=== PATIENT | female | born 1955 | race Caucasian/White ===

== ENCOUNTER 2021-02-18 23:09 | Emergency (ER) | payer MEDICARE, OTHER ==
[~2021-02-18] VITALS: Ht 162.5 cm; Wt 92.3 kg
[2021-02-18 23:14] VITALS: BP 167/86
--- OUTSIDE RECORDS SUMMARY | 2021-02-18 23:15 | XMS REPORT | Clinical Summary ---
Author Author [facility] Organization [facility] Address Unknown Phone Unavailable Care Team Providers Care Review Scheduling Coordinator Name Role Phone Jem Winter MD PCP Source Comments Some departments are not documenting in the electronic medical record. If you d o not see the information that you expected, contact Release of Information in [facility] [employer] Information Management department at [phone] for further assistan ce in locating additional records.[facility] Allergies Not on File Medications End Date Status Medication Sig Dispensed Refills Start Date Active levothyroxine (SYNTHROID) Take 50 mcg 0 50 mcg tablet by mouth daily 30 minutes before breakfast. Active omeprazole DR(+) Take 20 mg by 0 (PRILOSEC) 20 mg capsule mouth daily before breakfast. Active atenolol (TENORMIN) 25 mg Take 25 mg by 0 tablet mouth daily. Active loratadine (CLARITIN) 10 Take 10 mg by 0 mg tablet mouth every morning. Active gabapentin 300 mg Tb24 Take by 0 mouth. Active lovastatin(+) (MEVACOR) Take 20 mg by 0 20 mg tablet mouth at bedtime daily. Active montelukast (SINGULAIR) Take 10 mg by 0 10 mg tablet mouth at bedtime daily. 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 Medical History Medical History Date Comments High cholesterol Dizziness Hypothyroid Seasonal allergic reaction Family History Medical History Relation Name Comments Stroke Brother Diabetes Father Stroke Father Relation Name Status Comments Brother Alive Father Alive Mother Alive Sister Alive Sister Alive Sister Alive Social History Date Tobacco Use Types Packs/Day Years Used Never Smoker Smokeless Tobacco: Never Used Sex Assigned at Date Recorded Not on file Last Filed Vital Signs Reading Time Taken Comments Vital Sign 160/66 10/18/2018 1:46 PM CDT Blood Pressure 67 10/18/2018 1:46 PM CDT Pulse - - Temperature - - Respiratory Rate - - Oxygen Saturation - - Inhaled Oxygen Concentration 96.6 kg (213 lb) 10/18/2018 1:46 PM CDT Weight 162.6 cm (5' 4") 10/18/2018 1:46 PM CDT Height 36.56 10/18/2018 1:46 PM CDT Body Mass Index Plan of Treatment Health Maintenance Due Date Last Done Comments DTAP/TDAP VACCINES (1 - 02/29/1972 Tdap) HEPATITIS C SCREENING 02/29/1972 PHYSICAL (COMPREHENSIVE) 02/29/1972 EXAM BREAST CANCER SCREENING 1994 COLORECTAL CANCER 02/29/2004 SCREENING SHINGLES RECOMBINANT 02/29/2004 VACCINE (1 of 2) OSTEOPOROSIS 2019 SCREENING/MONITORING PNEUMONIA (PPSV23) 2019 VACCINE (1 of 1 - PPSV23) INFLUENZA VACCINE 10/17/2020 Results Not on filefrom Last 3 Months Advance Directives Patient Vice President Business Development Explanation Type Date Recorded Advance Directive/DPOA Care Teams Start Date End Date Review Scheduling Coordinator Relationship Specialty 10/18/18 Jem Winter MD PCP - [address] [address]
--- OUTSIDE RECORDS SUMMARY | 2021-02-18 23:16 | XMS REPORT | Clinical Summary ---
Author Author [facility] Organization [facility] Address Unknown Phone Unavailable Care Team Providers Care Associate Chief Nurse Name Role Phone Jem Winter MD PCP Allergies No known active allergies Medications End Date Status Medication Sig Dispensed Refills Start Date Active levothyroxine (SYNTHROID, Take 50 mcg 0 LEVOTHROID) 50 MCG tablet by mouth daily. Active atenolol (TENORMIN) 25 MG Take 25 mg by 0 tablet mouth 2 (two) times a day. Active lovastatin (MEVACOR) 20 Take 20 mg by 0 MG tablet mouth nightly. Active gabapentin (NEURONTIN) Take 1 90 capsule 0 300 MG capsule (300 7 capsuleIndications: mg total) by neuropathic pain mouth 3 (three) times a day. Active montelukast (SINGULAIR) Take 10 mg by 0 10 mg tablet mouth nightly. Active omeprazole (PRILOSEC) 20 Take 20 mg by 0 MG capsule mouth daily. Active loratadine (CLARITIN) 10 Take 10 mg by 0 mg tablet mouth daily. Active fluticasone propionate Use 2 sprays 0 (FLONASE) 50 in each mcg/actuation nasal spray nostril. Active LORazepam (ATIVAN) 0.5 MG Take 0.5 mg 0 11/18 tablet by mouth 8 daily as needed. Active polyethylene glycol Take 17 g by 0 (GLYCOLAX) 17 gram/dose mouth. 8 powder Active pseudoephedrine (SUDAFED) TAKE 2 0 03/20 30 MG tablet TABLETS BY 7 MOUTH TWICE DAILY. 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 Hypothyroidism 02/25/2017 Hyperlipidemia 02/25/2017 Anxiety 02/25/2017 Hypertension 02/25/2017 GERD (gastroesophageal reflux disease) 02/25/2017 Arthritis 02/25/2017 Cranial nerve palsy, right 02/25/2017 Dysphagia 02/24/2017 Thoracic myelopathy 02/23/2017 Resolved Problems Problem Noted Date Resolved Date Moderate malnutrition 02/26/2017 03/07/2017 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 03/04/2017 Family History Medical History Relation Name Comments Transient ischemic attack Brother Luis Latham No Known Problems Daughter 1 Miriam Nicole No Known Problems Daughter 2 Oksana Melgoza No Known Problems Daughter 3 Arin Adams Diabetes type II Father Elder Latham Osteoarthritis Father Elder Latham Transient ischemic attack Father Elder Latham Hypothyroidism Sister 1 Sonam Purcell Hypothyroidism Sister 2 Connie Vickers Hypothyroidism Sister 3 Lexii Live Relation Name Status Comments Brother Luis Latham Daughter 1 Miriam Nicole Alive Daughter 2 Oksana Harvey Abad Daughter 3 Arin Adams Father Elder Latham Mother Kandace Beckeroom Sister 1 Sonam Purcell Alive Sister 2 Connie Vickers Alive Sister 3 Lexii Live Alive Social History Date Tobacco Use Types Packs/Day Years Used Never Smoker Smokeless Tobacco: Never Used Tobacco Cessation: Counseling Given: No Comments Alcohol Use Standard Drinks/Week No 0 (1 standard drink = 0.6 o z pure alcohol) Sex Assigned at Date Recorded Not on file Last Filed Vital Signs Reading Time Taken Comments Vital Sign 113/51 12/09/2018 2:03 PM CDT Blood Pressure 65 12/09/2018 2:03 PM CDT Pulse 36.4 C (97.6 F) 03/16/2017 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 Temperature 19 09/06/2018 2:09 PM CDT Respiratory Rate 100% 12/09/2018 2:03 PM CDT Oxygen Saturation - - Inhaled Oxygen Concentration 96.6 kg (213 lb) 12/09/2018 2:03 PM CDT Weight 162.6 cm (5' 4") 12/09/2018 2:03 PM CDT Height 36.56 12/09/2018 2:03 PM CDT Body Mass Index Plan of Treatment Health Maintenance Due Date Last Done Comments Hepatitis C Screen 1955 Td/Tdap# 1955 COVID-19 Vaccine (1) 1966 Colorectal Screening via 02/29/2004 Colonoscopy Mammogram Screening 02/29/2004 Zoster Vaccine# (1 of 2) 02/29/2004 Advance Care Plan 2019 Conversation Needed # Fall Risk Assessment # 2019 03/16/2017 Osteoporosis Screening 2019 Pneumococcal Vaccine: 65+ 2019 Years (1 of 1 - PPSV23) Influenza Vaccine (#1) 2020 01/02/2018 Results Not on filefrom Last 3 Months Insurance Type Payer Benefit Subscriber ID Effective Phone Address Plan / Dates Group [facility] OUT OF [id number] 2016-P [phone] [address] PREF [facility] [id number] [place] [id number] [facility] (Home) [place], [place] [address] Catarina Simon Personal/F Self 1955 [phone] [facility] (Home) [place] [address] Catarina Simon Personal/F Self 1955 [id number] [facility] (Home) [place] [address] Advance Directives For more information, please contact: [phone] Patient Body Fitter Explanation Type Date Recorded Advance Directives and Living Will Power of Photoengraver Apprentice Health Care Directive Date Inactivated Comments Code Status Date Activated 03/16/2017 1:57 PM Full Code 03/07/2017 4:28 PM 03/07/2017 4:07 PM Full Code 02/24/2017 3:07 AM Care Teams Start Date End Date Associate Chief Nurse Relationship Specialty 12/09/18 Jem Winter MD PCP - [address] [address]
[2021-02-18] MEDS ORDERED: LORazepam INJ 2 MG/ML (ATIVAN) VIAL IVP ONE (23:30)
[2021-02-18] MEDS ORDERED: NS IV 1000 ML 1,000 ML IV SCH (23:30)
--- NOTE | 2021-02-18 23:30 | ED Cough/URI ---
General Stated Complaint: COUGH;SOB Source: patient Exam Limitations: no limitations History of Present Illness Date Seen by Provider: Feb 18, 2021 Time Seen by Provider: 23:14 Initial Comments Patient ER by private conveyance from home with chief complaint of sore throat difficulty with fluids, productive cough, mild shortness of air that has been improving over the past week. She was around some people with similar viral illness who are getting over it. She has had her Covid vaccines as well as a booster and an influenza vaccine. She has a history of transmyelitis and has her left vocal cord paralyzed which amplifies her symptoms. She says because of this she is been afraid to take her Ativan and that has made her anxiety worse. No fevers chills diarrhea nausea or vomiting. She has not had much water to drink since this morning. She has not taken her evening medicines. Allergies and Home Medications Allergies Coded Allergies: No Known Drug Allergies (Unverified , 02/18/21) Patient Home Medication List Home Medication List Reviewed: Yes Review of Systems Review of Systems Constitutional: No chills, No diaphoresis EENTM: No ear discharge, No ear pain Respiratory: cough, phlegm, short of breath; No wheezing Cardiovascular: No chest pain, No palpitations Gastrointestinal: No abdominal pain, No constipation, No diarrhea, No nausea, No vomiting Genitourinary: No discharge, No dysuria Musculoskeletal: No back pain, No joint pain All Other Systems Reviewed Negative Unless Noted: Yes Past Bnxkses-Txlhhw-Wktsiw Hx Patient Social History Tobacco Use?: No Use of E-Cig and/or Vaping dev: No Physical Exam Vital Signs - First Documented 02/18/21 23:14 Temp 35.9 Pulse 103 Resp 18 B/P (MAP) 167/86 (113) Pulse Ox 96 O2 Delivery Room Air Capillary Refill : Height: '" Weight: lbs. oz. kg; BMI Method: General Appearance: WD/WN, no apparent distress Eyes: Bilateral Eye Normal Inspection, Bilateral Eye PERRL, Bilateral Eye EOMI HEENT: PERRL/EOMI, TM abnormal (R) (Myringotomy tube in place without significant erythema injection tenderness or discharge.), other (Oropharynx is dry with some swollen tonsils and erythema. No vocal changes appreciated.) Neck: non-tender, full range of motion, supple, normal inspection, lymphadenopathy (R), lymphadenopathy (L) (Mild anterior cervical lymphadenopathy bilaterally) Respiratory: lungs clear, normal breath sounds, no respiratory distress (Oxygen saturation 99 to 100% on room air nonlabored breathing.), no accessory muscle use Cardiovascular: normal peripheral pulses, regular rate, rhythm Extremities: normal range of motion, normal inspection, normal capillary refill Neurologic/Psychiatric: alert, normal mood/affect, oriented x 3 Skin: normal color, warm/dry Progress/Results/Core Measures Suspected Sepsis SIRS Temperature: Pulse: Respiratory Rate: Blood Pressure / Mean: Results/Orders Lab Results Laboratory Tests Test 02/18/21 23:23 Range/Units Group A Streptococcus Screen NEGATIVE NEGATIVE My Orders Orders - KIRA KLEIN Coronavirus Sars-Cov-2 So 2019 (02/18/21 23:23) Rapid Strep A Screen (02/18/21 23:23) Chest 1 View Ap/Pa Only (02/18/21 23:23) Ns Iv 1000 Ml (Sodium Chloride 0.9%) (02/18/21 23:30) Lorazepam Injection (Ativan Injection) (02/18/21 23:45) Influenza A & B Antigens (02/18/21 23:23) Methylprednisolone Sod Succ (Solu-Medrol (02/19/21 00:00) Medications Given in ED Current Medications Medications Dose Ordered Sig/Aleja Route Start Time Stop Time Status Last Admin Dose Admin Lorazepam 1 mg ONCE ONCE IM 02/18/21 23:45 02/18/21 23:46 DC 02/18/21 23:39 1 MG Vital Signs/I&O 02/18/21 23:14 Temp 35.9 Pulse 103 Resp 18 B/P (MAP) 167/86 (113) Pulse Ox 96 O2 Delivery Room Air Capillary Refill : Progress Note #1: Time: 23:29 Progress Note She appears to have an upper respiratory tract infection most likely viral. We will get a rapid strep, Covid and influenza. We have her a liter of fluids for mild dehydration and keep her on the monitor briefly while we send out a Covid swab and obtain a influenza antibody test. We will give her an IV dose of Ativan. Her anxiety seems to stem from her antibiotic to drink which seems to be from a sore throat. We could offer her salt water gargles or even a single dose of steroid to help assuage the swelling in her throat. Progress Note #2: Time: 23:34 Progress Note Patient is quite anxious and the goal was to address her symptoms of dehydration and anxiety. The patient grabbed at the nurses face while she was trying to swab her throat for rapid strep's and is very agitated after 3 attempts at IV. We will just give her IM Ativan and reassess her symptoms. Progress Note #3: Time: 23:54 Progress Note The Ativan has started to help with her symptoms of anxiety. She still feels like there is phlegm or mucus in the back of her throat although none is seen. I suspect she just has swollen soft tissue from a viral infection. We will give her a shot of steroid to help shrink that up. We have encouraged her to use vapor rubs and decongestants. She says she has Sudafed available. I have also encouraged her to try Chloraseptic sprays or salt water gargles but she states she cannot tolerate due to her vocal cord paralysis. Return precautions were given. She does not appear to have a bacterial infection on the rapid strep. She is not having stridor and does not need epinephrine at this time. Diagnostic Imaging Diagonstic Imaging: Xray Plain Films/CT/US/NM/MRI: chest Comments [facility] [place], [place] NAME: ROB [facility]BLEDO [facility] REC#: [id number] PT STATUS: REG ER : 1955 PHYSICIAN: KIRA KLEIN MD ADMIT DATE: 02/18/21/ER FS Draft Date of Exam:02/18/21 CHEST 1 VIEW AP/PA ONLY INDICATION: soa cough. TECHNIQUE: Single view chest 11:32 PM. CORRELATION STUDY: None FINDINGS: The heart size, mediastinal configuration and pulmonary vascularity are within normal limits. The lungs are clear with no consolidating infiltrate. There is no significant effusion or pneumothorax. IMPRESSION: 1. Negative for acute abnormality of the chest. Dictated on workstation # [id number] Dict: 02/18/21 2342 Trans: 02/18/21 2342 DO [id number] Interpreted by: EDYTA RAMOS DO Electronically signed by: Reviewed: Reviewed by Me Departure Impression Primary Impression: Laryngitis, acute Disposition: 01 HOME, SELF-CARE Condition: Stable Departure-Patient Inst. Decision time for Depature: 23:56 Referrals: FERNANDO HALL MD (PCP/Family) Primary Care Physician Patient Instructions: Laryngitis (DC) Add. Discharge Instructions: You appear to have a viral respiratory tract infection causing the swelling in the back of your throat. The Covid swab is a send out and will have results available within 1 to 2 days. We will call you if it is positive. Continue to try and drink fluids and take your medications. Vapor rubs such as Vicks or Mentholatum as well as decongestants may be helpful. The steroid should kick in over the next 12 to 24 hours. You may continue taking prednisone 2 tablets daily for the next 5 days as n ecessary to reduce the swelling in the back of your throat. Return to the ER promptly if you are having difficulty breathing or you feel you are unable to drink and are becoming dehydrated. Scripts Prednisone (Prednisone) 20 Mg Tab 40 MG PO DAILY for 5 Days, #10 TAB 0 Refills Prov: KIRA KLEIN 02/18/21 KIRA KLEIN Feb 18, 2021 23:30
--- NOTE | 2021-02-18 23:43 | Diagnostic Imaging Report ---
INDICATION: soa cough. TECHNIQUE: Single view chest 11:32 PM. CORRELATION STUDY: None FINDINGS: The heart size, mediastinal configuration and pulmonary vascularity are within normal limits. The lungs are clear with no consolidating infiltrate. There is no significant effusion or pneumothorax. IMPRESSION: 1. Negative for acute abnormality of the chest. Dictated by: Dictated on workstation # [id number]
[2021-02-18] MEDS ORDERED: LORazepam INJ 2 MG/ML (ATIVAN) VIAL IM ONE (23:45)
[2021-02-18] MEDS ORDERED: PRD20T PO (23:58)
[2021-02-19] MEDS ORDERED: methylPREDNISolone 125 MG (Solu-MEDROL) VIAL IM ONE
== END 2021-02-19 00:05 | disposition home or self-care (01) ==
LOC: ER FS 23:13
DX: J04.0 Acute laryngitis (principal); Z20.822 Contact with and (suspected) exposure to COVID-19
CPT/HCPCS: 71045; 87430; 87635; 87636; 87804

== ENCOUNTER 2021-02-19 22:49 | Emergency (ER) | payer MEDICARE ==
[~2021-02-19] VITALS: Ht 162.5 cm; Wt 91.7 kg
[~2021-02-19 22:49] MED LIST: PRD20T PO
[2021-02-19 22:56] VITALS: BP 150/91
--- NOTE | 2021-02-19 23:15 | ED Cough/URI ---
General Chief Complaint: Respiratory Problems Stated Complaint: SOB Nursing Triage Note: Patient was seen in the ER last night for the same complaint. Patient states that she wakes up gasping for air. Patient has a paralyzed vocal cord. Patient did state that it has been a good day over all. She has been eating and drinking fine and she was able to take her night time medications. Patient states she is scared to go to sleep. Patient is able to speak in complete sentences. Source: patient Exam Limitations: no limitations History of Present Illness Date Seen by Provider: Feb 19, 2021 Time Seen by Provider: 22:54 Initial Comments 65yoF with PMH of vocal cord dysfunction coming in due to episode of laryngitis. Was seen yesterday in the emergency department for the same. She says she is here because she is scared to sleep. Does not feel short of breath when she is awake, but is worried that she will feel short of breath if she tries to sleep. Says that she was told she possibly has sleep apnea in the past, and they tried a CPAP machine, but she says she was unable to sleep with that. She is otherwise denying any chest pain, abdominal pain, nausea, vomiting, diarrhea, difficulty swallowing, or any other concerns. Allergies and Home Medications Allergies Coded Allergies: No Known Drug Allergies (Unverified , 02/18/21) Patient Home Medication List Home Medication List Reviewed: Yes Prednisone (Prednisone) 20 Mg Tab, 40 MG PO DAILY Prescribed by: KIRA KLEIN on 02/18/21 2779 Review of Systems Review of Systems Constitutional: No chills, No fever EENTM: No blurred vision Respiratory: No short of breath Cardiovascular: No chest pain Gastrointestinal: No abdominal pain Genitourinary: no symptoms reported Musculoskeletal: no symptoms reported Skin: no symptoms reported Psychiatric/Neurological: No Symptoms Reported Hematologic/Lymphatic: No Symptoms Reported Immunological/Allergic: no symptoms reported All Other Systems Reviewed Negative Unless Noted: Yes Past Njerwbt-Trdynu-Vkqsum Hx Patient Social History Tobacco Use?: No Use of E-Cig and/or Vaping dev: No Substance use?: No Alcohol Use?: No Pt feels they are or have been: No Past Medical History Surgeries: Yes (ear tubes) Physical Exam Vital Signs - First Documented 02/19/21 22:56 Temp 37.0 Pulse 93 Resp 18 B/P (MAP) 150/91 (110) Pulse Ox 98 O2 Delivery Room Air Capillary Refill : Less Than 3 Seconds Height: '" Weight: lbs. oz. kg; 34.00 BMI Method: General Appearance: WD/WN, no apparent distress Eyes: Bilateral Eye Normal Inspection, Bilateral Eye PERRL HEENT: PERRL/EOMI, normal ENT inspection, TMs normal, pharynx normal Neck: non-tender, full range of motion, supple, normal inspection, other (No stridor heard) Respiratory: chest non-tender, lungs clear, normal breath sounds, no respiratory distress, no accessory muscle use Cardiovascular: regular rate, rhythm, no edema, no murmur Gastrointestinal: normal bowel sounds, non tender, soft; No distended, No guarding Extremities: normal range of motion, non-tender, normal inspection, no pedal edema, no calf tenderness, normal capillary refill Neurologic/Psychiatric: no motor/sensory deficits, alert, normal mood/affect Skin: normal color, warm/dry Lymphatic: no adenopathy Progress/Results/Core Measures Suspected Sepsis SIRS Temperature: Pulse: 93 Respiratory Rate: 18 Blood Pressure 150 /91 Mean: 110 Results/Orders Vital Signs/I&O 02/19/21 22:56 Temp 37.0 Pulse 93 Resp 18 B/P (MAP) 150/91 (110) Pulse Ox 98 O2 Delivery Room Air Capillary Refill : Less Than 3 Seconds Blood Pressure Mean: 110 Progress Note : Progress Note Came for follow-up for her laryngitis. Vitals normal, no stridor on exam. Normal range of motion of neck with no signs of deep infection in her neck. No trismus and after she clears her throat her voice is normal. Back of her throat appears normal. Tolerating PO without difficulty. I believe she is stable for discharge with outpatient follow-up. She was sent home with strict return prec autions Departure Impression Primary Impression: Laryngitis, acute Disposition: HOME, SELF-CARE Condition: Stable Departure-Patient Inst. Decision time for Depature: 23:14 Referrals: FERNANDO HALL MD (PCP/Family) Primary Care Physician Patient Instructions: Laryngitis (DC) Add. Discharge Instructions: Please follow-up with your primary care provider. If you develop fever that is uncontrollable and lasting many days, he began feeling short of breath while awake with stridor, or you have any other concerns and he can call your doctor or come back to the ER. MATHEW WHITT MD Feb 19, 2021 23:15
== END 2021-02-19 23:21 | disposition home or self-care (01) ==
LOC: EDUNIT# 22:49 → ER FS 22:51
DX: J04.0 Acute laryngitis (principal)
CPT/HCPCS: 99281

== ENCOUNTER 2021-05-13 05:41 | Outpatient (CLI) | payer MEDICARE, OTHER ==
[~2021-05-13] VITALS: Ht 162.6 cm; Wt 88.7 kg
[2021-05-13] MEDS ORDERED: ROSU20TA32 PO (11:30)
[2021-05-13] MEDS ORDERED: ATEN25TA PO (11:30)
[2021-05-13] MEDS ORDERED: LEVO-129 PO (11:30)
[2021-05-13] MEDS ORDERED: POLY17PO6 PO (11:34)
[2021-05-13] MEDS ORDERED: MONT-40 PO (11:34)
[2021-05-13] MEDS ORDERED: OMEP20CA18 PO (11:34)
[2021-05-13] MEDS ORDERED: FEXO-14 PO (11:34)
[2021-05-13] MEDS ORDERED: GABA300C PO (11:34)
== END 2021-05-13 11:48 ==
LOC: PREOP 05:41
PROVIDERS: ATTEND Otolaryngology Otolaryngology/Facial Plastic Surgery
DX: Z01.818 Encounter for other preprocedural examination (principal)

== ENCOUNTER 2021-05-20 07:07 | Day surgery (SDC) | payer MEDICARE, OTHER ==
[2021-05-20] VITALS (10 sets, daily range): BP systolic 113–166; BP diastolic 56–92
[~2021-05-20] VITALS: Ht 162.6 cm; Wt 88.7 kg
[~2021-05-20 07:07] MED LIST changes: +ATEN25TA PO; +FEXO-14 PO; +GABA300C PO; +LEVO-129 PO; +MONT-40 PO; +OMEP20CA18 PO; +POLY17PO6 PO; +ROSU20TA32 PO
[2021-05-20] MEDS ORDERED: LACTATED RINGERS 1,000 ML IV PRN (07:30)
[2021-05-20] MEDS ORDERED: MIDAZOLAM 2 MG/2 ML (VERSED) VIAL ONE (08:30)
[2021-05-20] MEDS ORDERED: ONDANSETRON 4 MG/2 ML (SDV) Z0FRAN ONE (08:30)
[2021-05-20] MEDS ORDERED: proPOfol 200 MG/20 ML (DIPRIVAN) VIAL IV ONE (08:30)
[2021-05-20] MEDS ORDERED: fentaNYL INJ 100 MCG/2 ML AMP ONE (08:30)
[2021-05-20] MEDS ORDERED: LIDOCAINE PF 2% 5 ML (XYLOCAINE) VIAL ONE (08:30)
--- NOTE | 2021-05-20 08:38 | Progress Note-Post Operative ---
Post-Operative Progess Note Surgeon (s)/Educational Program Assistant (s) Surgeon JAZZMINE MENDEZ MD Educational Program Assistant n/a Pre-Operative Diagnosis Chronic/REcurrent Right OM Post-Operative Diagnosis same Post-Op Procedure Note Date of Procedure: May 20, 2021 Name of Procedure Performed: Right Myringotomy with Tube Description & Findings Description and Findings: n/a Anesthesia Type lma Estimated Blood Loss minimal Packing none. Specimen(s) collected/removed none JAZZMINE MENDEZ MD May 20, 2021 08:38
--- NOTE | 2021-05-20 08:38 | Progress Note-Pre Operative ---
Pre-Operative Progress Note H&P Reviewed The H&P was reviewed, patient examined and no changes noted. Date Seen by Provider: May 20, 2021 Time Seen by Provider: 08:15 Date H&P Reviewed: May 20, 2021 Time H&P Reviewed: 08:15 Pre-Operative Diagnosis: Chronic/REcurrent Right OM JAZZMINE MENDEZ MD May 20, 2021 08:38
[2021-05-20] MEDS ORDERED: APAP 325 MG/10.15 ML LIQ (TYLENOL) UDC PO PRN (08:45)
[2021-05-20] MEDS ORDERED: SEVOFLURANE (ULTANE) 15 ML INHAL SOLN ONE (08:50)
[2021-05-20] MEDS ORDERED: morphine INJ 10 MG/ML 1ML (SYR OR VIAL) IVP ONE (09:00)
[2021-05-20] MEDS ORDERED: CIPR5DRO OP (09:47)
--- NOTE | 2021-05-20 13:22 | Anesthesia-General Post-Op ---
General Patient Condition Mental Status/LOC: Same as Preop Cardiovascular: Satisfactory Nausea/Vomiting: Absent Respiratory: Satisfactory Pain: Controlled Complications: Absent Post Op Complications Complications None Follow Up Care/Instructions Patient Instructions None needed. Anesthesia/Patient Condition Patient Condition Patient is doing well, no complaints, stable vital signs, no apparent adverse anesthesia problems. No complications reported per nursing. ARTURO MARTINEZ CRNA May 20, 2021 13:22
== END 2021-05-20 10:50 | disposition home or self-care (01) ==
LOC: SDC 07:07
PROVIDERS: ATTEND Otolaryngology Otolaryngology/Facial Plastic Surgery
DX: H65.21 Chronic serous otitis media, right ear (principal); H69.81 Other specified disorders of Eustachian tube, right ear
CPT/HCPCS: 87081

== ENCOUNTER 2021-11-04 07:37 | Emergency (ER) | payer MEDICARE, OTHER ==
[~2021-11-04] VITALS: Ht 175 cm; Wt 89.0 kg
[~2021-11-04 07:37] MED LIST changes: +CIPR5DRO OP
--- NOTE | 2021-11-04 07:45 | ED General ---
General Chief Complaint: COVID19 Suspect/Confirmed Stated Complaint: COVID+; CHEST CONGESTION Source of Information: Patient History of Present Illness Date Seen by Provider: Nov 04, 2021 Time Seen by Provider: 07:43 Initial Comments 66-year-old female presenting with complaints of increased congestion. She was diagnosed with COVID 8 days ago when felt like she was improving but then overnight she had more congestion and was having more cough. 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 This makes it hard for her to cough and clear mucus and congestion. She has not been able to sleep overnight because of this. She did call EMS out this morning at 7 AM and they checked on her. Her oxygen saturation at that point was 98% and she was breathing okay. She drove here to the emergency department to be evaluated because she still felt like she had a lot of mucus and congestion. She was concerned that she was dehydrated from the virus, but denies nausea, vomiting, diarrhea and reports she is still drinking normally Severity: Moderate Modifying Factors: worse with Other (cough and congestion) Associated Systoms: No Chest Pain; Cough; No Diaphoresis, No Fever/Chills, No Headaches, No Loss of Appetite; Malaise; No Nausea/Vomiting, No Rash, No Seizure, No Shortness of Air, No Syncope, No Weakness Allergies and Home Medications Allergies Coded Allergies: amoxicillin (Unverified Adverse Reaction, Mild, 05/13/21) SEVERE THRUSH Patient Home Medication List Home Medication List Reviewed: Yes Atenolol (Atenolol) 25 Mg Tablet, 25 MG PO BID, (Reported) Entered as Reported by: ROB HOLLINGSWORTH on 05/13/21 113 Ciprofloxacin HCl (Ciloxan) 5 Ml Drops, 3 DROPS OP BID Prescribed by: NATHALIE CLARK on 05/20/21 0947 Fexofenadine HCl (Adrienne Allergy) 60 Mg Tablet, 60 MG PO DAILY, (Reported) Entered as Reported by: ROB HOLLINGSWORTH on 05/13/21 113 Gabapentin (Neurontin) 300 Mg Capsule, 300 MG PO TID, (Reported) Entered as Reported by: ROB HOLLINGSWORTH on 05/13/21 1134 Levothyroxine Sodium (Euthyrox) 50 Mcg Tablet, 50 MCG PO DAILY, (Reported) Entered as Reported by: ROB HOLLINGSWORTH on 05/13/21 1130 Montelukast Sodium (Montelukast Sodium) 10 Mg Tablet, 10 MG PO DAILY, (Reported) Entered as Reported by: ROB HOLLINGSWORTH on 05/13/21 1134 Omeprazole (Omeprazole) 20 Mg Capsule.dr, 20 MG PO DAILY, (Reported) Entered as Reported by: ROB HOLLINGSWORTH on 05/13/21 1134 Polyethylene Glycol 3350 (Miralax) 17 Gm Powd.pack, 17 GM PO DAILY, (Reported) Entered as Reported by: ROB HOLLINGSWORTH on 05/13/21 1134 Prednisone (Prednisone) 20 Mg Tab, 40 MG PO DAILY Prescribed by: JENNIFER WHITE on 11/04/21 0831 Rosuvastatin Calcium (Rosuvastatin Calcium) 20 Mg Tablet, 20 MG PO DAILY, (Reported) Entered as Reported by: ROB HOLLINGSWORTH on 05/13/21 1130 Review of Systems Review of Systems Constitutional: No chills, No fever; malaise EENTM: hoarseness, nose congestion, throat pain; No ear discharge, No ear pain, No blurred vision, No epistaxis Respiratory: cough, phlegm; No stridor, No wheezing Cardiovascular: No chest pain, No edema Gastrointestinal: No diarrhea, No nausea, No vomiting Genitourinary: No dysuria Musculoskeletal: no symptoms reported Skin: No rash Psychiatric/Neurological: Anxiety; Denies Headache Hematologic/Lymphatic: Denies Blood Clots Past Wpentny-Uvxxsp-Pxbkru Hx Patient Social History Tobacco Use?: No Use of E-Cig and/or Vaping dev: No Substance use?: No Alcohol Use?: No Immunizations Up To Date First/Initial COVID19 Vaccinat: 2020 Second COVID19 Vaccination Rivas: 2020 Third COVID19 Vaccination Date: 2020 Seasonal Allergies Seasonal Allergies: Yes Past Medical History Surgery/Hospitalization HX: Transverse Myelitis, Partially paralyzed vocal cords Surgeries: Yes (ear tubes, ENDOMETRIAL ABLATION) Respiratory: No Cardiac: Yes Coronary Artery Disease, Hypertension Neurological: No (TRANVERSE MYLITITIS WITH LEFT SIDE DEFICIETS 2017-AUTOIMMUNE) Female Reproductive Disorders: Endometriosis Genitourinary: No Gastrointestinal: Yes (TRANSVERSE MYLITIS) Chronic Constipation Musculoskeletal: No Endocrine: No HEENT: Yes (WEARS GLASSES, TRANSVERSE MYLITIS LT SIDE PARALYSIS OF VOCAL CORD AND THROA) Cancer: No Psychosocial: Yes Anxiety Integumentary: No Adverse Reaction/Blood Tranf: No Physical Exam Vital Signs Vital Signs - First Documented 11/04/21 07:58 Temp 35.3 Pulse 89 Resp 22 B/P (MAP) 153/89 (110) Pulse Ox 96 O2 Delivery Room Air Capillary Refill : Height, Weight, BMI Height: '" Weight: lbs. oz. kg; 33.54 BMI Method: General Appearance: Anxious HEENT: PERRL/EOMI, Pharyngeal Erythema; No Photophobia, No Tonsillar Exudate, No Tonsillar Enlargement Neck: Full Range of Motion, Normal Inspection, Non Tender, Supple Respiratory: Chest Non Tender, Lungs Clear, Normal Breath Sounds, No Accessory Muscle Use, No Respiratory Distress Cardiovascular: Regular Rate, Rhythm, Normal Peripheral Pulses Gastrointestinal: Normal Bowel Sounds, No Pulsatile Mass, Non Tender, Soft Rectal: Deferred Back: No CVA Tenderness Extremity: Normal Capillary Refill, Normal Inspection, No Pedal Edema Neurologic/Psychiatric: Alert, Oriented x3, ab initio etl developer II-XII Norm as Tested Skin: Normal Color, Warm/Dry Progress/Results/Core Measures Suspected Sepsis SIRS Temperature: Pulse: Respiratory Rate: Laboratory Tests 11/04/21 08:09: White Blood Count 7.3 Blood Pressure / Mean: Laboratory Tests 11/04/21 08:09: Creatinine 0.98, Platelet Count 242, Total Bilirubin 0.3 Results/Orders Lab Results Laboratory Tests Test 11/04/21 08:09 11/04/21 08:10 Range/Units White Blood Count 7.3 4.3-11.0 10^3/uL Red Blood Count 4.77 3.80-5.11 10^6/uL Hemoglobin 12.4 11.5-16.0 g/dL Hematocrit 39 35-52 % Mean Corpuscular Volume 82 80-99 fL Mean Corpuscular Hemoglobin 26 25-34 pg Mean Corpuscular Hemoglobin Concent 32 32-36 g/dL Red Cell Distribution Width 15.9 H 10.0-14.5 % Platelet Count 242 130-400 10^3/uL Mean Platelet Volume 10.5 9.0-12.2 fL Immature Granulocyte % (Auto) 0 % Neutrophils (%) (Auto) 58 42-75 % Lymphocytes (%) (Auto) 28 12-44 % Monocytes (%) (Auto) 14 H 0-12 % Eosinophils (%) (Auto) 0 0-10 % Basophils (%) (Auto) 0 0-10 % Neutrophils # (Auto) 4.2 1.8-7.8 10^3/uL Lymphocytes # (Auto) 2.0 1.0-4.0 10^3/uL Monocytes # (Auto) 1.0 0.0-1.0 10^3/uL Eosinophils # (Auto) 0.0 0.0-0.3 10^3/uL Basophils # (Auto) 0.0 0.0-0.1 10^3/uL Immature Granulocyte # (Auto) 0.0 0.0-0.1 10^3/uL Sodium Level 136 135-145 MMOL/L Potassium Level 3.8 3.6-5.0 MMOL/L Chloride Level 100 98-107 MMOL/L Carbon Dioxide Level 21 21-32 MMOL/L Anion Gap 15 H 5-14 MMOL/L Blood Urea Nitrogen 17 7-18 MG/DL Creatinine 0.98 0.60-1.30 MG/DL Estimat Glomerular Filtration Rate 63 BUN/Creatinine Ratio 17 Glucose Level 100 70-105 MG/DL Calcium Level 8.8 8.5-10.1 MG/DL Corrected Calcium 8.5 8.5-10.1 MG/DL Total Bilirubin 0.3 0.1-1.0 MG/DL Aspartate Amino Transf (AST/SGOT) 31 5-34 U/L Alanine Aminotransferase (ALT/SGPT) 17 0-55 U/L Alkaline Phosphatase 99 40-136 U/L Total Protein 7.7 6.4-8.2 GM/DL Albumin 4.4 3.2-4.5 GM/DL Urine Color DK YELLOW Urine Clarity CLOUDY Urine pH 6.0 5-9 Urine Specific Mitchell >=1.030 1.016-1.022 Urine Protein 1+ H NEGATIVE Urine Glucose (UA) NEGATIVE NEGATIVE Urine Ketones 1+ H NEGATIVE Urine Nitrite NEGATIVE NEGATIVE Urine Bilirubin 1+ H NEGATIVE Urine Urobilinogen 0.2 < = 1.0 MG/DL Urine Leukocyte Esterase TRACE H NEGATIVE Urine RBC (Auto) 2+ H NEGATIVE Urine RBC 5-10 H /HPF Urine WBC 2-5 /HPF Urine Squamous Epithelial Cells 25-50 H /HPF Urine Crystals NONE /LPF Urine Bacteria MODERATE H /HPF Urine Casts PRESENT /LPF Urine Hyaline Casts 2-5 H /LPF Urine Mucus LARGE H /LPF Urine Culture Indicated NO My Orders Orders - JENNIFER WHITE MD Ed Iv/Invasive Line Start (11/04/21 07:58) Cbc With Automated Diff (11/04/21 07:58) Comprehensive Metabolic Panel (11/04/21 07:58) Ns Iv 1000 Ml (Sodium Chloride 0.9%) (11/04/21 08:00) Ua Culture If Indicated (11/04/21 07:58) Chest 1 View Ap/Pa Only (11/04/21 07:58) Dexamethasone Injection (Decadron Inje (11/04/21 08:02) Vital Signs/I&O 11/04/21 07:58 Temp 35.3 Pulse 89 Resp 22 B/P (MAP) 153/89 (110) Pulse Ox 96 O2 Delivery Room Air Capillary Refill : Progress Note #1: Progress Note Reassured patient that the vital signs appear stable without hypoxia or signs of dehydration based off of her heart rate and blood pressure. Will obtain a chest x-ray and basic labs and urine to help evaluate her hydration. Counseled patient on using Mucinex and humidity to help with her mucus and cough. Will try a steroid to help with congestion and cough. She reports that this is helped when she has had laryngitis and issues with her throat in the past. As she feels like she is dehydrated we will give a liter of normal saline IV for hydration and allow her to drink fluids while waiting on labs and x-ray to come back. Progress Note #2: Time: 08:34 Progress Note Chest x-ray is clear without acute findings. The labs appear stable without acute significant abnormality. Patient is trying to urinate currently and provide a urine specimen. Progress Note #3: Progress Note Urine showed increased specific gravity >1.035. She had 25-50 epithelial cells so it appeared to be contaminated and there were 1+ Ketones. Based on this she does need to drink more water. She was doing well after the 1 L of NS administered here for hydration. d/c on 5 day burst of prednisone and encouraged to use Mucinex to thin mucus and congestion. Humidifier or vaporizer to help moisten mucus. Counseled on follow up and return precautions. Diagnostic Imaging Diagonstic Imaging: Xray Plain Films/CT/US/NM/MRI: chest Comments NAME: ROB ROBLEDO MED REC#: [id number] PT STATUS: REG ER : 1955 PHYSICIAN: JENNIFER WHITE MD ADMIT DATE: 11/04/21/ER FS Draft Date of Exam:11/04/21 CHEST 1 VIEW AP/PA ONLY INDICATION: Cough and congestion, Covid infection Frontal chest obtained at 8:11 a.m. and compared with 02/18/2021. Heart and mediastinal silhouette are normal in appearance. The lungs are clear. There is no pneumothorax or pleural fluid. IMPRESSION: Negative chest. Dictated on workstation # [id number] Dict: 11/04/21816 Trans: 11/04/21818 DACIA [id number] Interpreted by: EPIFANIO JAIME MD Electronically signed by: Reviewed: Reviewed by Me Departure Impression Primary Impression: Upper respiratory infection with cough and congestion Additional Impression: Respiratory tract infection due to COVID-19 virus Disposition: HOME, SELF-CARE Condition: Stable Departure-Patient Inst. Decision time for Depature: 09:00 Referrals: FERNANDO HALL MD (PCP) Primary Care Physician Patient Instructions: Cough, Adult ED, Recovery After COVID-19 Add. Discharge Instructions: Stay well-hydrated and drink plenty of fluids. Try taking plain Mucinex [id number] to help with cough and congestion. This will loosen and thin out the congestion so that it is not choking you and is easier to cough up. Use a humidifier or vaporizer at home to help keep congestion and throat moist so that they do not get dried out. The steroid will help with congestion and cough as well. Check back with your regular provider for continued concerns. All discharge instructions reviewed with patient and/or family. Voiced understanding. Scripts Prednisone (Prednisone) 20 Mg Tab 40 MG PO DAILY for cough/congestion for 5 Days, #10 TAB 0 Refills Prov: JENNIFER WHITE MD 11/04/21 JENNIFER WHITE MD Nov 04, 2021 07:45
[2021-11-04 07:58] VITALS: BP 153/89
[2021-11-04] MEDS ORDERED: guaiFENesin SYRUP 100 MG/5 ML 10 ML (ROBITUSSIN SF) PO STA (07:58)
[2021-11-04] MEDS ORDERED: NS IV 1000 ML 1,000 ML IV SCH (08:00)
[2021-11-04 08:20] LABS: BASOPHILS % (AUTO) 0 % (0-10); EOSINOPHILS % (AUTO) 0 % (0-10); HEMATOCRIT 39 % (35-52); HEMOGLOBIN 12.4 g/dL (11.5-16.0); LYMPHOCYTES % (AUTO) 28 % (12-44); MEAN CORPUSCULAR HEMOGLOBIN 26 pg (25-34); MEAN CORPUSCULAR HGB CONC 32 g/dL (32-36); MEAN CORPUSCULAR VOLUME 82 fL (80-99); MEAN PLATELET VOLUME 10.5 fL (9.0-12.2); MONOCYTES % (AUTO) 14 % (0-12); NEUTROPHILS # (AUTO) 4.2 10^3/uL (1.8-7.8); NEUTROPHILS % (AUTO) 58 % (42-75); PLATELET COUNT 242 10^3/uL (130-400); WHITE BLOOD COUNT 7.3 10^3/uL (4.3-11.0)
--- NOTE | 2021-11-04 08:20 | Diagnostic Imaging Report ---
INDICATION: Cough and congestion, Covid infection Frontal chest obtained at 8:11 a.m. and compared with 02/18/2021. Heart and mediastinal silhouette are normal in appearance. The lungs are clear. There is no pneumothorax or pleural fluid. IMPRESSION: Negative chest. Dictated by: Dictated on workstation # [id number]
[2021-11-04 08:31] LABS: ALBUMIN 4.4 GM/DL (3.2-4.5); BILIRUBIN,TOTAL 0.3 MG/DL (0.1-1.0); CALCIUM 8.8 MG/DL (8.5-10.1); CREATININE SERUM 0.98 MG/DL (0.60-1.30); POTASSIUM 3.8 MMOL/L (3.6-5.0); TOTAL PROTEIN 7.7 GM/DL (6.4-8.2)
[2021-11-04] MEDS ORDERED: PRD20T PO (08:31)
[2021-11-04 08:43] LABS: CLARITY,URINE CLOUDY; GLUCOSE, URINE (UA) NEGATIVE (NEGATIVE); KETONES,URINE 1+ (NEGATIVE); LEUKOCYTE ESTERASE ,URINE TRACE (NEGATIVE); NITRITE,URINE NEGATIVE (NEGATIVE); PROTEIN,URINE 1+ (NEGATIVE)
[2021-11-04 08:59] LABS: BACTERIA,URINE MODERATE /HPF; BILIRUBIN,URINE 1+ (NEGATIVE); COLOR,URINE DK YELLOW; SQUAMOUS EPITHELIAL CELL,UR 25-50 /HPF
== END 2021-11-04 09:05 | disposition home or self-care (01) ==
LOC: EDUNIT# 07:37 → ER FS 07:39
DX: U07.1 COVID-19 (principal); J06.9 Acute upper respiratory infection, unspecified; Z73.0 Burn-out
CPT/HCPCS: 36415; 71045; 80053; 81000; 85025

== ENCOUNTER 2022-03-05 03:56 | Emergency (ER) | payer MEDICARE, OTHER ==
[2022-03-05] MEDS ORDERED: predniSONE 20 MG TAB PO ONE (04:15)
--- NOTE | 2022-03-05 04:16 | ED Cough/URI ---
General Chief Complaint: Cough/Cold/Flu Symptoms Stated Complaint: COUGH / CONGESTION Nursing Triage Note: Pt complaining of a cough and congestion that started in the night tonight. Source: patient Exam Limitations: no limitations History of Present Illness Date Seen by Provider: Mar 05, 2022 Time Seen by Provider: 04:10 Initial Comments Patient is 67-year-old female with sore throat, nasal congestion rhinorrhea and voice heart since starting yesterday. Patient was seen at [facility] and prescribed prednisone which she has not yet filled. She denies fever chills sweats chest pain shortness of breath. No nausea or vomiting. No other acute symptoms or complaints. Recent flu and COVID exposure. Timing/Duration: yesterday Severity/Quality: other Prior Episodes/Possible Cause: other Modifying Factors: Improves With Other Associated Symptoms: other Allergies and Home Medications Allergies Coded Allergies: amoxicillin (Unverified Adverse Reaction, Mild, 05/13/21) SEVERE THRUSH Patient Home Medication List Home Medication List Reviewed: Yes Atenolol (Atenolol) 25 Mg Tablet, 25 MG PO BID, (Reported) Entered as Reported by: ROB HOLLINGSWORTH on 05/13/21 1130 Ciprofloxacin HCl (Ciloxan) 5 Ml Drops, 3 DROPS OP BID Prescribed by: NATHALIE CLARK on 05/20/21 0947 Fexofenadine HCl (Adrienne Allergy) 60 Mg Tablet, 60 MG PO DAILY, (Reported) Entered as Reported by: ROB HOLLINGSWORTH on 05/13/21 1134 Gabapentin (Neurontin) 300 Mg Capsule, 300 MG PO TID, (Reported) Entered as Reported by: ROB HOLLINGSWORTH on 05/13/21 1134 Levothyroxine Sodium (Euthyrox) 50 Mcg Tablet, 50 MCG PO DAILY, (Reported) Entered as Reported by: ROB HOLLINGSWORTH on 05/13/21 1130 Montelukast Sodium (Montelukast Sodium) 10 Mg Tablet, 10 MG PO DAILY, (Reported) Entered as Reported by: ROB HOLLINGSWORTH on 05/13/21 1134 Omeprazole (Omeprazole) 20 Mg Capsule.dr, 20 MG PO DAILY, (Reported) Entered as Reported by: ROB HOLLINGSWORTH on 05/13/21 1134 Polyethylene Glycol 3350 (Miralax) 17 Gm Powd.pack, 17 GM PO DAILY, (Reported) Entered as Reported by: ROB HOLLINGSWORTH on 05/13/21 1134 Prednisone (Prednisone) 20 Mg Tab, 40 MG PO DAILY Prescribed by: JENNIFER WHITE on 11/04/21 0831 Rosuvastatin Calcium (Rosuvastatin Calcium) 20 Mg Tablet, 20 MG PO DAILY, (Reported) Entered as Reported by: ROB HOLLINGSWORTH on 05/13/21 1130 Review of Systems Review of Systems Constitutional: see HPI EENTM: see HPI Respiratory: see HPI Cardiovascular: see HPI Gastrointestinal: see HPI Genitourinary: see HPI : No Musculoskeletal: see HPI Skin: see HPI Psychiatric/Neurological: See HPI Hematologic/Lymphatic: See HPI All Other Systems Reviewed Negative Unless Noted: No Past Mlfblut-Ltvnwu-Plrnrp Hx Patient Social History Tobacco Use?: No Use of E-Cig and/or Vaping dev: No Substance use?: No Alcohol Use?: No Pt feels they are or have been: No Immunizations Up To Date First/Initial COVID19 Vaccinat: 2020 Second COVID19 Vaccination Rivas: 2020 Third COVID19 Vaccination Date: 2020 Seasonal Allergies Seasonal Allergies: Yes Past Medical History Surgery/Hospitalization HX: Transverse Myelitis, Partially paralyzed vocal cords Surgeries: Yes (ear tubes, ENDOMETRIAL ABLATION) Respiratory: No Cardiac: Yes Coronary Artery Disease, Hypertension Neurological: No (TRANVERSE MYLITITIS WITH LEFT SIDE DEFICIETS 2017-AUTOIMMUNE) Female Reproductive Disorders: Endometriosis Genitourinary: No Gastrointestinal: Yes (TRANSVERSE MYLITIS) Chronic Constipation Musculoskeletal: No Endocrine: No HEENT: Yes (WEARS GLASSES, TRANSVERSE MYLITIS LT SIDE PARALYSIS OF VOCAL CORD AND THROA) Cancer: No Psychosocial: Yes Anxiety Integumentary: No Adverse Reaction/Blood Tranf: No Physical Exam Vital Signs - First Documented 03/05/22 03:59 Temp 36.5 Pulse 70 Resp 18 B/P (MAP) 201/94 (129) Pulse Ox 100 O2 Delivery Room Air Capillary Refill : Less Than 3 Seconds Height: '" Weight: lbs. oz. kg; 29.00 BMI Method: General Appearance: WD/WN, no apparent distress Eyes: Bilateral Eye Normal Inspection, Bilateral Eye PERRL, Bilateral Eye EOMI HEENT: PERRL/EOMI, normal ENT inspection, TMs normal, pharyngeal erythema (Voice hoarseness.) Neck: full range of motion, supple Respiratory: lungs clear, normal breath sounds, no respiratory distress Cardiovascular: normal peripheral pulses, regular rate, rhythm Gastrointestinal: soft Neurologic/Psychiatric: alert, normal mood/affect, oriented x 3 Focused Exam Sepsis Stage: Ruled Out Progress/Results/Core Measures Suspected Sepsis SIRS Temperature: Pulse: 70 Respiratory Rate: 18 Blood Pressure 201 /94 Mean: 129 Results/Orders My Orders Orders - HADLEY HDEZ DO Prednisone Tablet (Deltasone Tablet) (03/05/22 04:15) Covid 19 Inhouse Test (03/05/22 04:16) Influenza A And B By Pcr (03/05/22 04:16) Isolation Central Supply Req (03/05/22 04:16) Vital Signs/I&O 03/05/22 03:59 Temp 36.5 Pulse 70 Resp 18 B/P (MAP) 201/94 (129) Pulse Ox 100 O2 Delivery Room Air Capillary Refill : Less Than 3 Seconds Blood Pressure Mean: 129 Departure Communication (Admissions) Acute viral syndrome. Prednisone given. COVID and flu Marcela swabs obtained. Recommendations are supportive care self quarantine and PCP follow-up Impression Primary Impression: Viral pharyngitis Disposition: 01 HOME, SELF-CARE Condition: Stable Departure-Patient Inst. Decision time for Depature: 04:20 Referrals: FERNANDO HALL MD (PCP/Family) Primary Care Physician Patient Instructions: Viral Pharyngitis Add. Discharge Instructions: You were evaluated in the ER for congestion and sore throat. Your symptoms are consistent with viral pharyngitis. Please take steroids as directed, and [id number] cough syrup as needed. Increase fluids and vitamin intake. F ollow-up with your PCP in 3 to 5 days for reevaluation if symptoms persist. Return to the ED if new or concerning symptoms. All discharge instructions reviewed with patient and/or family. Voiced understanding. HADLEY HDEZ DO Mar 05, 2022 04:16
[2022-03-05 04:32] VITALS: BP 201/94
== END 2022-03-05 04:47 | disposition home or self-care (01) ==
LOC: EDUNIT# 03:56 → ER FS 03:57
DX: J02.9 Acute pharyngitis, unspecified (principal); B34.9 Viral infection, unspecified; Z28.310 Unvaccinated for COVID-19; Z20.822 Contact with and (suspected) exposure to COVID-19
CPT/HCPCS: 87636; 99284